=== PATIENT | female | born 1990 | race Caucasian/White ===

== ENCOUNTER 2017-02-08 11:28 | Emergency (ER) | payer OTHER ==
[~2017-02-08] VITALS: Ht 165.1 cm; Wt 63.5 kg
[~2017-02-08 11:28] MED LIST: KEFLEX500 MG PO; ULTRAM50 MG PO
[2017-02-08] MEDS ORDERED: IBUPROFEN200 M1 PO (11:38)
[2017-02-08] MEDS ORDERED: KETOROLAC TROME10 MG PO (11:47)
[2017-02-08] MEDS ORDERED: CLEOCIN HCL300 MG PO (11:47)
== END 2017-02-08 11:55 | disposition home or self-care (01) ==
LOC: ED 11:28
DX: K02.9 Dental caries, unspecified (principal); F17.200 Nicotine dependence, unspecified, uncomplicated
CPT/HCPCS: 99283